=== PATIENT | female | born 1990 | race Hispanic/Latino ===

== ENCOUNTER 2018-05-09 14:01 | Emergency (ER) | payer SELFPAY ==
[2018-05-09 14:58] LABS: Bilirubin,Urine NEG (Negative); Blood,Urine NEG (Negative); Color,Urine Yellow (Yellow); Protein,Urine <15 mg/dL mg/dL (Negative); Urobilinogen,Urine < 2.0 mg/dL (<2.0)
[2018-05-09] MEDS ORDERED: SUBLIMAZE IV ONE (15:05)
[2018-05-09] MEDS ORDERED: ZOFRAN IV ONE (15:05)
[2018-05-09] MEDS ORDERED: NACL 0.9% 500 ML 500 ML IV ONE (15:08)
--- NOTE | 2018-05-09 15:08 | Emergency Department Report ---
HPI - General Chief Complaint: Abdominal Pain Time Seen by Provider: 05/09/18 14:37 - HPI HPI: The patient is a 28-year-old female who presents for evaluation of abdominal. The patient reports abdominal pain for the past 4 hours, epigastric in location , 10/10 in severity, sharp in quality, exacerbated with vomiting. She has also episodes of nausea and emesis, nonbloody emesis. She shares that she has experienced on and off abdominal pain for greater than one month. The patient denies fever, chills, night sweats, diarrhea, blood in the stool, dark tarry stool, dysuria, hematuria, flank pain, genital discharge, inability to pass flatus. ED Past Medical Hx - Past Medical History Previous Medical History?: Yes Additional medical history: abd pain - Surgical History Past Surgical History?: Yes Additional Surgical History: ectopic - Social History Smoking Status: Current Every Day Smoker Substance Use Type: Alcohol - Medications Home Medications: Home Medications Medication Instructions Recorded Confirmed Last Taken Type Acetaminophen [Tylenol] 500 mg PO Q6HR #20 tablet 05/09/18 Unknown Rx Pnv No.95/Ferrous Fum/Folic AC 1 each PO QDAY #31 tablet 05/09/18 Unknown Rx [ Vitamin Tablet] Promethazine [Phenergan] 12.5 mg W[place] Q6H PRN #20 supp.rect 05/09/18 Unknown Rx ED Review of Systems ROS: Stated complaint: ABD PAIN Other details as noted in HPI Constitutional: denies: fever ENT: denies: throat or neck pain Respiratory: denies: cough, shortness of breath Cardiovascular: denies: chest pain Endocrine: denies unexplained weight loss or gain Gastrointestinal: reports abdominal pain, nausea Genitourinary: denies: dysuria Musculoskeletal: denies: leg swelling Skin: denies: rash Neurological: denies: headache Hematological/Lymphatic: denies: easy bleeding or easy bruising Psych: denies sadness or hopelessness Physical Exam - Physical Exam Vital Signs: Vital Signs 05/09/18 14:09 Temperature 98.6 F Pulse Rate 84 Respiratory 26 H Rate Blood Pressure 116/73 O2 Sat by Pulse 98 Oximetry Physical Exam: General: well-nourished, well-developed, no acute distress Head: Normocephalic, atraumatic Eyes: normal sclera ENT: Mucous membranes are pink and moist Neck: trachea midline, neck supple, No neck stiffness, no cervical adenopathy Respiratory: Breath sounds equal bilaterally, no wheezing, rales, or rhonchi Cardio: S1 and S2 present, no murmurs, rubs, gallops, capillary refill is brisk Abdomen: Normoactive bowel sounds, soft abdomen, epigastric and left upper quadrant tenderness to palpation present, no rigidity, no guarding or rebound tenderness Chest WALL/Back: No tenderness to palpation of the chest wall, no CVA tenderness with percussion Musc: No pitting edema Skin: No rash Neuro: no facial drooping, normal speech Psych: Normal affect ED Course Vital Signs 05/09/18 14:09 Temperature 98.6 F Pulse Rate 84 Respiratory 26 H Rate Blood Pressure 116/73 O2 Sat by Pulse 98 Oximetry ED Medical Decision Making - Lab Data Result diagrams: 05/09/18 15:16 05/09/18 15:16 - Medical Decision Making The patient was seen and examined by myself. The patient is placed on a order packer or packager and continuous pulse ox. On initial evaluation, the patient was found to be in no distress. Evaluation orders are placed. IV access is established and the patient is given 1 L normal saline fluid bolus and Zofran for nausea, and IV analgesic for pain. Lab results revealed a beta hCG level of 12, and otherwise labs were non-concerning including WBC, hemoglobin, hematocrit , electrolytes, renal function, LFTs, lipase. As the patient's beta hCG is only 12, IVP would not be identified on ultrasound. As patient has no lower or mid abdominal pain, and only is experiencing epigastric pain, ultrasound the pelvis to rule out ectopic is not indicated at this time. The patient was reevaluated and reported that their symptoms were markedly improved. The patient is instructed to follow-up with [facility] or emergency facility for repeat beta hCG testing in 48 hours. The patient is stable for discharge with outpatient follow-up. The patient is given follow-up and return instructions. The patient expressed understanding and agreed with the plan. The patient is discharged in stable condition. Critical care attestation.: If time is entered above; I have spent that time in minutes in the direct care of this critically ill patient, excluding procedure time. ED Disposition Clinical Impression: Abdominal pain, acute, epigastric, Nausea and vomiting in adult, Abdominal pain during in first trimester Disposition: DC-01 TO HOME OR SELFCARE Is pt being admited?: No Does the pt Need Aspirin: No Condition: Stable Instructions: Abdominal Pain (ED), Abdominal Pain in (ED) Additional Instructions: We are unable to confirm a normal intrauterine as your is early. Make sure to follow-up with your [facility] or an Emergency Medical facility within the next 48 hours for repeat B-HCG testing and trending. Your beta hCG level should double in 2 days if your is progressing as normal. You could have an ectopic and you must immediately present to an emergency department should you develop worsening of your symptoms or severe pain, vaginal bleeding, lightheadedness, passing out, confusion, or fever. Referrals: PRIMARY CARE [Primary Care Provider] - 3-5 Days [facility] [Provider Group] - 3-5 Days Time of Disposition: 15:05
[2018-05-09 15:59] LABS: Basophils # (Auto) 0.1 K/mm3 (0.0-0.1); Basophils % (Auto) 0.9 % (0.0-1.8); Eosinophils # (Auto) 0.2 K/mm3 (0.0-0.4); Eosinophils % (Auto) 1.8 % (0.0-4.3); Hematocrit 37.8 % (30.3-42.9); Hemoglobin 12.5 gm/dl (10.1-14.3); Lymphocytes # (Auto) 2.2 K/mm3 (1.2-5.4); Lymphocytes % (Auto) 16.5 % (13.4-35.0); Mean Corpuscular HGB Conc 33 % (30-34); Mean Corpuscular Hemoglobin 30 pg (28-32); Mean Corpuscular Volume 90 fl (79-97); Monocytes # (Auto) 0.8 K/mm3 (0.0-0.8); Monocytes % (Auto) 6.4 % (0.0-7.3); Platelet Count 221 K/mm3 (140-440); Red Blood Count 4.22 M/mm3 (3.65-5.03); Red Cell Distribution Width 13.5 % (13.2-15.2)
[2018-05-09 16:05] LABS: Alanine Aminotransferase 6 units/L (7-56); Albumin 3.8 g/dL (3.9-5); BUN/Creatinine Ratio 20; Blood Urea Nitrogen 12 mg/dL (7-17); Calcium 8.8 mg/dL (8.4-10.2); Hemolysis Index 62
[2018-05-09 17:58] VITALS: BP 108/48
== END 2018-05-09 19:46 | disposition home or self-care (01) ==
LOC: ED 14:01
DX: R10.13 Epigastric pain (principal); R11.2 Nausea with vomiting, unspecified; F17.200 Nicotine dependence, unspecified, uncomplicated; Z33.1 Pregnant state, incidental
CPT/HCPCS: 36415; 80053; 81001; 83690; 84702; 85025; 96361; 96374; 96375; 99284; J2405; J3010; J7040

== ENCOUNTER 2018-07-24 17:15 | Emergency (ER) | payer MEDICAID ==
[2018-07-24 17:28] VITALS: BP 129/77
== END 2018-07-24 19:00 | disposition left against medical advice (07) ==
LOC: ED 17:15
DX: R10.10 Upper abdominal pain, unspecified (principal); Z53.21 Procedure and treatment not carried out due to patient leaving prior to being seen by health care provider